=== PATIENT | female | born 1995 | race Two or more races ===

== ENCOUNTER 2020-06-09 14:50 | Inpatient (IN) | payer OTHER ==
[~2020-06-09] VITALS: Ht 157.5 cm; Wt 71.7 kg
[2020-06-09 10:15] VITALS: BP 102/66
[2020-06-09] MEDS ORDERED: ONDANSETRON HCL 4 MG TABLET PO PRN (22:15)
[2020-06-09] MEDS ORDERED: BISACODYL 10 MG RECTAL RECTAL SUPPOSITORY PR PRN (22:15)
[2020-06-09] MEDS ORDERED: QUEtiapine FUMARATE 25 MG TABLET PO SCH (23:00)
[2020-06-09] MEDS ORDERED: GABAPENTIN 400 MG CAPSULE PO SCH (23:00)
[2020-06-09] MEDS ORDERED: BACLOFEN 10 MG TABLET PO SCH (23:00)
[2020-06-09] MEDS: SENNA 187 MG TABLET PO SCH (23:00)
[2020-06-10] MEDS ORDERED: SODIUM CL IRRIG SOLN BOTTLE 250 ML IRRIG ONE (00:22)
[2020-06-10] MEDS: OxyCODONE HCL 5 MG IR TABLET PO PRN ×3 (00:39→17:53)
[2020-06-10] MEDS: BACLOFEN 10 MG TABLET PO SCH ×4 (01:31→20:34)
[2020-06-10] MEDS: QUEtiapine FUMARATE 25 MG TABLET PO SCH ×2 (01:32→20:34)
[2020-06-10] MEDS: GABAPENTIN 400 MG CAPSULE PO SCH ×4 (01:36→20:34)
[2020-06-10 02:09] VITALS: BP 99/55
[2020-06-10 07:20] LABS: BASOPHILS % (AUTO) 0.4 % (0.0-2.0); EOSINOPHILS % (AUTO) 3.6 % (1.0-6.0); HEMATOCRIT 28.5 % (36-46); HEMOGLOBIN 9.3 g/dL (12.0-16.0); LYMPHOCYTES # (AUTO) 0.5 K/uL (1.0-4.8); LYMPHOCYTES % (AUTO) 14.7 % (22.0-44.0); MEAN CORPUSCULAR HGB CONC 32.8 G/dL (31.0-37.0); MEAN CORPUSCULAR VOLUME 89 fL (80-100); MONOCYTES # (AUTO) 0.3 K/uL (0.1-1.0); MONOCYTES % (AUTO) 7.6 % (2.0-9.0); NEUTROPHILS # (AUTO) 2.7 K/uL (1.8-7.7); NEUTROPHILS % (AUTO) 73.7 % (40.0-70.0); PLATELET COUNT (AUTO) 239 K/uL (150-450); RED BLOOD CELL COUNT(AUTO) 3.22 MIL/uL (4.00-5.20); RED CELL DISTRIBUTION WIDTH 15.7 % (11.5-14.5)
[2020-06-10 07:25] LABS: INR 1.1 (0.9-1.1); PROTHROMBIN TIME 11.5 SEC (9.4-11.6)
[2020-06-10 07:29] LABS: ALANINE AMINOTRANSFERASE 17 U/L (12-78); ALBUMIN 2.9 g/dL (3.4-5.0); ALKALINE PHOSPHATASE 97 U/L (46-116); ANION GAP 8 mmol/L (8-16); ASPARTATE AMINOTRANSFERASE 42 U/L (15-37); BILIRUBIN,TOTAL 1.5 mg/dL (0.1-1.0); CALCIUM, TOTAL 8.7 mg/dL (8.8-10.5); CARBON DIOXIDE 26 mmol/L (22-29); CHLORIDE 103 mmol/L (98-107); CREATININE 0.44 mg/dL (0.60-1.30); GLOMERULAR FILTR. RATE CALC > 60 mL/min (>60); GLUCOSE,RANDOM 98 mg/dL (70-110); SODIUM SERUM 137 mmol/L (136-145); UREA NITROGEN, BLOOD 11 mg/dL (7-18)
[2020-06-10 07:45] VITALS: BP 110/57
[2020-06-10] MEDS: CALCIUM CIT/VITAMIN D3 200 MG-250 UNITS TABLET PO SCH (08:03)
[2020-06-10] MEDS: TAMSULOSIN HCL 0.4 MG CAPSULE PO SCH (08:04)
[2020-06-10] MEDS: DOCUSATE SODIUM 250 MG CAPSULE PO SCH (08:05)
[2020-06-10] MEDS: APIXABAN 5 MG TABLET PO SCH ×2 (08:06→20:34)
[2020-06-10] MEDS: ASPIRIN 81 MG CHEWABLE TABLET PO SCH (08:06)
[2020-06-10] MEDS: 0.9% SODIUM CHLORIDE 10 ML SYRINGE IVP SCH ×3 (08:06→16:07)
[2020-06-10] MEDS: LIDOCAINE 5% TRANSDERMAL PATCH TD SCH (08:07)
[2020-06-10] MEDS: POLYETHYLENE GLYCOL 3350 17 GM PACKET PO SCH (08:07)
[2020-06-10] MEDS ORDERED: MULTIVITAMINS, THERAPEUTIC TABLET PO SCH (09:00)
[2020-06-10] MEDS: ACETAMINOPHEN 325 MG TABLET PO PRN (11:08)
[2020-06-10 16:00] VITALS: BP 125/59
[2020-06-10 16:53] LABS: APPEARANCE,URINE CLOUDY (CLEAR); BILIRUBIN,URINE PRELIM. POSITIVE (NEGATIVE); GLUCOSE, URINE (UA) NEGATIVE (NEGATIVE); KETONES,URINE NEGATIVE (NEGATIVE); LEUKOCYTE ESTERASE ,URINE NEGATIVE (NEGATIVE); NITRATE,URINE NEGATIVE (NEGATIVE); OCCULT BLOOD,URINE NEGATIVE (NEGATIVE); PH,URINE 7.5 (5.0-8.0); PROTEIN,URINE TRACE (NEGATIVE); UROBILINOGEN,URINE >=8.0 mg/dL (<=1.0)
[2020-06-10 16:59] LABS: BACTERIA,URINE Few /HPF (None Seen); RBC,URINE 0-2 /HPF (0-2); WBC,URINE 0-2 /HPF (0-5)
[2020-06-10 17:00] LABS: AMORPHOUS SEDIMENT,UR Moderate /LPF (None Seen); RENAL EPITHELIAL CELLS,URINE Rare /LPF (None Seen)
[2020-06-10] MEDS: CHLORHEXIDINE GLUCONATE 4% 118 ML TOPICAL LIQUID TP SCH (17:54)
[2020-06-10] MEDS: SENNA 187 MG TABLET PO SCH (20:34)
[2020-06-10] MEDS: -LIDODERM PATCH NOTE- MISC SCH (20:36)
[2020-06-11] MEDS: 0.9% SODIUM CHLORIDE 10 ML SYRINGE IVP SCH ×4 (00:13→23:15)
[2020-06-11 01:30] VITALS: BP 105/64
[2020-06-11] MEDS: DOCUSATE SODIUM 250 MG CAPSULE PO SCH (09:00)
[2020-06-11] MEDS: POLYETHYLENE GLYCOL 3350 17 GM PACKET PO SCH (09:00)
[2020-06-11] MEDS ORDERED: SODIUM CL IRRIG SOLN BOTTLE 250 ML IRRIG ONE (11:09)
[2020-06-11 11:25] VITALS: BP 111/69
[2020-06-11] MEDS: LACTOBAC ACID/BULG/BIFID/THERM TABLET PO SCH (11:30)
[2020-06-11] MEDS ORDERED: LOPERAMIDE HCL 2 MG CAPSULE PO PRN (11:30)
[2020-06-11] MEDS: CALCIUM CIT/VITAMIN D3 200 MG-250 UNITS TABLET PO SCH (13:02)
[2020-06-11] MEDS: ASPIRIN 81 MG CHEWABLE TABLET PO SCH (13:05)
[2020-06-11] MEDS: GABAPENTIN 400 MG CAPSULE PO SCH ×3 (13:06→20:26)
[2020-06-11] MEDS: TAMSULOSIN HCL 0.4 MG CAPSULE PO SCH (13:06)
[2020-06-11] MEDS: MULTIVITAMINS WITH MINERALS, THERAPEUTIC TABLET PO SCH (13:06)
[2020-06-11] MEDS: LIDOCAINE 5% TRANSDERMAL PATCH TD SCH (13:06)
[2020-06-11] MEDS: APIXABAN 5 MG TABLET PO SCH ×2 (13:07→20:27)
[2020-06-11] MEDS: BACLOFEN 10 MG TABLET PO SCH ×3 (13:07→20:27)
[2020-06-11 16:37] VITALS: BP 117/73
[2020-06-11] MEDS: CHLORHEXIDINE GLUCONATE 4% 118 ML TOPICAL LIQUID TP SCH (18:23)
[2020-06-11] MEDS: OxyCODONE HCL 5 MG IR TABLET PO PRN ×2 (18:24→23:15)
[2020-06-11] MEDS: QUEtiapine FUMARATE 25 MG TABLET PO SCH (20:27)
[2020-06-11] MEDS: SENNA 187 MG TABLET PO SCH (20:27)
[2020-06-11] MEDS: -LIDODERM PATCH NOTE- MISC SCH (20:28)
[2020-06-11 23:15] VITALS: BP 113/59
[2020-06-12] MEDS: LACTOBAC ACID/BULG/BIFID/THERM TABLET PO SCH (07:45)
[2020-06-12] MEDS: BACLOFEN 10 MG TABLET PO SCH ×3 (07:45→20:38)
[2020-06-12] MEDS: TAMSULOSIN HCL 0.4 MG CAPSULE PO SCH (07:45)
[2020-06-12] MEDS: APIXABAN 5 MG TABLET PO SCH ×2 (07:45→20:38)
[2020-06-12] MEDS: MULTIVITAMINS WITH MINERALS, THERAPEUTIC TABLET PO SCH (07:45)
[2020-06-12] MEDS: GABAPENTIN 400 MG CAPSULE PO SCH ×3 (07:45→20:38)
[2020-06-12] MEDS: LIDOCAINE 5% TRANSDERMAL PATCH TD SCH (07:46)
[2020-06-12] MEDS: ASPIRIN 81 MG CHEWABLE TABLET PO SCH (07:46)
[2020-06-12] MEDS: CALCIUM CIT/VITAMIN D3 200 MG-250 UNITS TABLET PO SCH (07:51)
[2020-06-12] MEDS: POLYETHYLENE GLYCOL 3350 17 GM PACKET PO SCH (07:53)
[2020-06-12] MEDS: 0.9% SODIUM CHLORIDE 10 ML SYRINGE IVP SCH ×2 (07:53→15:11)
[2020-06-12] MEDS: DOCUSATE SODIUM 250 MG CAPSULE PO SCH (07:53)
[2020-06-12 08:01] VITALS: BP 105/62
[2020-06-12] MEDS: OxyCODONE HCL 5 MG IR TABLET PO PRN ×2 (10:41→20:38)
[2020-06-12 15:05] VITALS: BP 110/65
[2020-06-12] MEDS: CHLORHEXIDINE GLUCONATE 4% 118 ML TOPICAL LIQUID TP SCH (18:00)
[2020-06-12] MEDS: MIRTAZAPINE 15 MG TABLET PO SCH (20:38)
[2020-06-12] MEDS: -LIDODERM PATCH NOTE- MISC SCH (20:39)
[2020-06-12] MEDS: SENNA 187 MG TABLET PO SCH (20:41)
[2020-06-13 06:23] VITALS: BP 111/67
[2020-06-13] MEDS: OxyCODONE HCL 5 MG IR TABLET PO PRN ×2 (06:23→13:27)
[2020-06-13 07:14] VITALS: BP 103/61
[2020-06-13] MEDS: DOCUSATE SODIUM 250 MG CAPSULE PO SCH (08:25)
[2020-06-13] MEDS: LACTOBAC ACID/BULG/BIFID/THERM TABLET PO SCH (08:25)
[2020-06-13] MEDS: ASPIRIN 81 MG CHEWABLE TABLET PO SCH (08:25)
[2020-06-13] MEDS: APIXABAN 5 MG TABLET PO SCH ×2 (08:28→20:41)
[2020-06-13] MEDS: TAMSULOSIN HCL 0.4 MG CAPSULE PO SCH (08:28)
[2020-06-13] MEDS: BACLOFEN 10 MG TABLET PO SCH (08:28)
[2020-06-13] MEDS: POLYETHYLENE GLYCOL 3350 17 GM PACKET PO SCH (08:28)
[2020-06-13] MEDS: LIDOCAINE 5% TRANSDERMAL PATCH TD SCH (08:29)
[2020-06-13] MEDS: MULTIVITAMINS WITH MINERALS, THERAPEUTIC TABLET PO SCH (08:29)
[2020-06-13] MEDS: GABAPENTIN 400 MG CAPSULE PO SCH ×3 (08:29→20:41)
[2020-06-13] MEDS: CALCIUM CIT/VITAMIN D3 200 MG-250 UNITS TABLET PO SCH (08:38)
[2020-06-13 16:00] VITALS: BP 107/68
[2020-06-13] MEDS: ACETAMINOPHEN 325 MG TABLET PO PRN (16:16)
[2020-06-13] MEDS: -LIDODERM PATCH NOTE- MISC SCH (20:41)
[2020-06-13] MEDS: SENNA 187 MG TABLET PO SCH (20:41)
[2020-06-13] MEDS: MIRTAZAPINE 15 MG TABLET PO SCH (20:41)
[2020-06-14 00:41] VITALS: BP 104/63
[2020-06-14] MEDS: OxyCODONE HCL 5 MG IR TABLET PO PRN ×2 (00:41→19:59)
[2020-06-14 06:05] LABS: BASOPHILS % (AUTO) 0.8 % (0.0-2.0); EOSINOPHILS % (AUTO) 3.9 % (1.0-6.0); HEMATOCRIT 30.6 % (36-46); LYMPHOCYTES # (AUTO) 0.7 K/uL (1.0-4.8); LYMPHOCYTES % (AUTO) 24.4 % (22.0-44.0); MEAN CORPUSCULAR HEMOGLOBIN 28.9 pg (26.0-34.0); MEAN CORPUSCULAR HGB CONC 32.7 G/dL (31.0-37.0); MEAN CORPUSCULAR VOLUME 89 fL (80-100); MONOCYTES # (AUTO) 0.3 K/uL (0.1-1.0); NEUTROPHILS # (AUTO) 1.9 K/uL (1.8-7.7); NEUTROPHILS % (AUTO) 60.9 % (40.0-70.0); PLATELET COUNT (AUTO) 283 K/uL (150-450); RED BLOOD CELL COUNT(AUTO) 3.45 MIL/uL (4.00-5.20); RED CELL DISTRIBUTION WIDTH 15.8 % (11.5-14.5)
[2020-06-14 07:12] LABS: ALANINE AMINOTRANSFERASE 28 U/L (12-78); ALBUMIN 3.1 g/dL (3.4-5.0); ALKALINE PHOSPHATASE 117 U/L (46-116); ANION GAP 11 mmol/L (8-16); ASPARTATE AMINOTRANSFERASE 46 U/L (15-37); BILIRUBIN,TOTAL 1.4 mg/dL (0.1-1.0); CALCIUM, TOTAL 9.4 mg/dL (8.8-10.5); CARBON DIOXIDE 25 mmol/L (22-29); CHLORIDE 101 mmol/L (98-107); CREATININE 0.55 mg/dL (0.60-1.30); GLOMERULAR FILTR. RATE CALC > 60 mL/min (>60); GLUCOSE,RANDOM 100 mg/dL (70-110); POTASSIUM 3.6 mmol/L (3.5-5.1); SODIUM SERUM 137 mmol/L (136-145); TOTAL PROTEIN, SERUM 7.1 g/dL (6.4-8.2); UREA NITROGEN, BLOOD 11 mg/dL (7-18)
[2020-06-14 07:22] VITALS: BP 100/61
[2020-06-14] MEDS: ACETAMINOPHEN 325 MG TABLET PO PRN ×2 (07:35→13:38)
[2020-06-14] MEDS: APIXABAN 5 MG TABLET PO SCH ×2 (08:14→20:40)
[2020-06-14] MEDS: DOCUSATE SODIUM 250 MG CAPSULE PO SCH (08:14)
[2020-06-14] MEDS: TAMSULOSIN HCL 0.4 MG CAPSULE PO SCH (08:14)
[2020-06-14] MEDS: LACTOBAC ACID/BULG/BIFID/THERM TABLET PO SCH (08:14)
[2020-06-14] MEDS: ASPIRIN 81 MG CHEWABLE TABLET PO SCH (08:14)
[2020-06-14] MEDS: POLYETHYLENE GLYCOL 3350 17 GM PACKET PO SCH (08:15)
[2020-06-14] MEDS: LIDOCAINE 5% TRANSDERMAL PATCH TD SCH (08:15)
[2020-06-14] MEDS: GABAPENTIN 400 MG CAPSULE PO SCH ×3 (08:15→20:40)
[2020-06-14] MEDS: MULTIVITAMINS WITH MINERALS, THERAPEUTIC TABLET PO SCH (08:15)
[2020-06-14] MEDS: CALCIUM CIT/VITAMIN D3 200 MG-250 UNITS TABLET PO SCH (08:21)
[2020-06-14 16:19] VITALS: BP 107/60
[2020-06-14] MEDS: MIRTAZAPINE 15 MG TABLET PO SCH (20:39)
[2020-06-14] MEDS: SENNA 187 MG TABLET PO SCH (20:40)
[2020-06-14] MEDS: -LIDODERM PATCH NOTE- MISC SCH (20:45)
[2020-06-15] VITALS: BP 103/65
[2020-06-15] MEDS: OxyCODONE HCL 5 MG IR TABLET PO PRN ×3 (07:16→19:29)
[2020-06-15 07:17] VITALS: BP 113/65
[2020-06-15] MEDS: LACTOBAC ACID/BULG/BIFID/THERM TABLET PO SCH (08:36)
[2020-06-15] MEDS: ASPIRIN 81 MG CHEWABLE TABLET PO SCH (08:36)
[2020-06-15] MEDS: TAMSULOSIN HCL 0.4 MG CAPSULE PO SCH (08:37)
[2020-06-15] MEDS: DOCUSATE SODIUM 250 MG CAPSULE PO SCH (08:37)
[2020-06-15] MEDS: APIXABAN 5 MG TABLET PO SCH ×2 (08:37→20:45)
[2020-06-15] MEDS: POLYETHYLENE GLYCOL 3350 17 GM PACKET PO SCH (08:38)
[2020-06-15] MEDS: LIDOCAINE 5% TRANSDERMAL PATCH TD SCH (08:38)
[2020-06-15] MEDS: MULTIVITAMINS WITH MINERALS, THERAPEUTIC TABLET PO SCH (08:38)
[2020-06-15] MEDS: GABAPENTIN 400 MG CAPSULE PO SCH ×3 (08:38→20:45)
[2020-06-15] MEDS: CALCIUM CIT/VITAMIN D3 200 MG-250 UNITS TABLET PO SCH (08:42)
[2020-06-15 16:37] VITALS: BP 114/66
[2020-06-15] MEDS: MIRTAZAPINE 15 MG TABLET PO SCH (20:44)
[2020-06-15] MEDS: SENNA 187 MG TABLET PO SCH (20:44)
[2020-06-15] MEDS: -LIDODERM PATCH NOTE- MISC SCH (20:45)
[2020-06-15] MEDS ORDERED: ASPI-728 PO (21:50)
[2020-06-15] MEDS ORDERED: ACID1TAB13 PO (21:52)
[2020-06-15] MEDS ORDERED: DOCU-350 PO (21:54)
[2020-06-15] MEDS ORDERED: APIX5TAB PO (21:54)
[2020-06-15] MEDS ORDERED: CALC-840 PO (21:54)
[2020-06-15] MEDS ORDERED: POLY17PO47 PO (21:57)
[2020-06-15] MEDS ORDERED: TAMS-13 PO (21:57)
[2020-06-15] MEDS ORDERED: GABA-1201 PO (21:57)
[2020-06-15] MEDS ORDERED: MULT-1239 PO (22:01)
[2020-06-15] MEDS ORDERED: LIDO700A15 TP (22:01)
[2020-06-15] MEDS ORDERED: MIRT-89 PO (22:01)
[2020-06-15] MEDS ORDERED: SENN8.6T90 PO (22:04)
[2020-06-16] VITALS: BP 108/58
[2020-06-16 07:42] VITALS: BP 112/64
[2020-06-16] MEDS: LIDOCAINE 5% TRANSDERMAL PATCH TD SCH (08:02)
[2020-06-16] MEDS: TAMSULOSIN HCL 0.4 MG CAPSULE PO SCH (08:02)
[2020-06-16] MEDS: GABAPENTIN 400 MG CAPSULE PO SCH ×3 (08:02→20:32)
[2020-06-16] MEDS: DOCUSATE SODIUM 250 MG CAPSULE PO SCH (08:02)
[2020-06-16] MEDS: CALCIUM CIT/VITAMIN D3 200 MG-250 UNITS TABLET PO SCH (08:02)
[2020-06-16] MEDS: ASPIRIN 81 MG CHEWABLE TABLET PO SCH (08:02)
[2020-06-16] MEDS: MULTIVITAMINS WITH MINERALS, THERAPEUTIC TABLET PO SCH (08:02)
[2020-06-16] MEDS: APIXABAN 5 MG TABLET PO SCH ×2 (08:03→20:32)
[2020-06-16] MEDS: POLYETHYLENE GLYCOL 3350 17 GM PACKET PO SCH (08:03)
[2020-06-16] MEDS: LACTOBAC ACID/BULG/BIFID/THERM TABLET PO SCH (08:03)
[2020-06-16] MEDS: OxyCODONE HCL 5 MG IR TABLET PO PRN (08:28)
[2020-06-16] MEDS ORDERED: APIXABAN 5 MG TABLET PO SCH (09:00)
[2020-06-16 16:26] VITALS: BP 121/63
[2020-06-16] MEDS: SENNA 187 MG TABLET PO SCH (20:32)
[2020-06-16] MEDS: MIRTAZAPINE 15 MG TABLET PO SCH (20:32)
[2020-06-16] MEDS: -LIDODERM PATCH NOTE- MISC SCH (20:33)
[2020-06-16] MEDS: ACETAMINOPHEN 325 MG TABLET PO PRN (21:43)
[2020-06-17 00:16] VITALS: BP 101/59
[2020-06-17 07:56] VITALS: BP 105/65
[2020-06-17 08:20] VITALS: BP 105/65
[2020-06-17] MEDS: OxyCODONE HCL 5 MG IR TABLET PO PRN ×2 (08:20→13:32)
[2020-06-17 08:41] LABS: BASOPHILS % (AUTO) 0.6 % (0.0-2.0); HEMATOCRIT 32.8 % (36-46); HEMOGLOBIN 10.7 g/dL (12.0-16.0); LYMPHOCYTES # (AUTO) 0.6 K/uL (1.0-4.8); LYMPHOCYTES % (AUTO) 20.3 % (22.0-44.0); MEAN CORPUSCULAR HGB CONC 32.6 G/dL (31.0-37.0); MEAN CORPUSCULAR VOLUME 89 fL (80-100); MONOCYTES # (AUTO) 0.3 K/uL (0.1-1.0); MONOCYTES % (AUTO) 10.4 % (2.0-9.0); NEUTROPHILS # (AUTO) 1.9 K/uL (1.8-7.7); NEUTROPHILS % (AUTO) 63.7 % (40.0-70.0); PLATELET COUNT (AUTO) 278 K/uL (150-450); RED BLOOD CELL COUNT(AUTO) 3.69 MIL/uL (4.00-5.20); RED CELL DISTRIBUTION WIDTH 16.4 % (11.5-14.5)
[2020-06-17] MEDS: ASPIRIN 81 MG CHEWABLE TABLET PO SCH (08:51)
[2020-06-17] MEDS: LACTOBAC ACID/BULG/BIFID/THERM TABLET PO SCH (08:51)
[2020-06-17] MEDS: DOCUSATE SODIUM 250 MG CAPSULE PO SCH (08:51)
[2020-06-17] MEDS: TAMSULOSIN HCL 0.4 MG CAPSULE PO SCH (08:52)
[2020-06-17] MEDS: GABAPENTIN 400 MG CAPSULE PO SCH ×4 (08:52→21:20)
[2020-06-17] MEDS: APIXABAN 5 MG TABLET PO SCH ×2 (08:52→20:39)
[2020-06-17] MEDS: POLYETHYLENE GLYCOL 3350 17 GM PACKET PO SCH (08:52)
[2020-06-17] MEDS: LIDOCAINE 5% TRANSDERMAL PATCH TD SCH (08:53)
[2020-06-17] MEDS: MULTIVITAMINS WITH MINERALS, THERAPEUTIC TABLET PO SCH (08:53)
[2020-06-17 08:56] LABS: ALANINE AMINOTRANSFERASE 33 U/L (12-78); ALBUMIN 3.1 g/dL (3.4-5.0); ALKALINE PHOSPHATASE 126 U/L (46-116); ANION GAP 8 mmol/L (8-16); ASPARTATE AMINOTRANSFERASE 40 U/L (15-37); BILIRUBIN,TOTAL 1.3 mg/dL (0.1-1.0); CALCIUM, TOTAL 9.3 mg/dL (8.8-10.5); CARBON DIOXIDE 27 mmol/L (22-29); CHLORIDE 103 mmol/L (98-107); CREATININE 0.44 mg/dL (0.60-1.30); GLOMERULAR FILTR. RATE CALC > 60 mL/min (>60); GLUCOSE,RANDOM 101 mg/dL (70-110); POTASSIUM 3.9 mmol/L (3.5-5.1); SODIUM SERUM 138 mmol/L (136-145); TOTAL PROTEIN, SERUM 7.3 g/dL (6.4-8.2); UREA NITROGEN, BLOOD 8 mg/dL (7-18)
[2020-06-17] MEDS: CALCIUM CIT/VITAMIN D3 200 MG-250 UNITS TABLET PO SCH (08:59)
[2020-06-17 16:00] VITALS: BP 102/61
[2020-06-17] MEDS: -LIDODERM PATCH NOTE- MISC SCH (20:37)
[2020-06-17] MEDS: SENNA 187 MG TABLET PO SCH (21:23)
[2020-06-17] MEDS: MIRTAZAPINE 15 MG TABLET PO SCH (21:25)
[2020-06-18 00:55] VITALS: BP 110/63
[2020-06-18] MEDS: OxyCODONE HCL 5 MG IR TABLET PO PRN ×3 (00:55→19:56)
[2020-06-18 09:10] VITALS: BP 100/58
[2020-06-18] MEDS: ASPIRIN 81 MG CHEWABLE TABLET PO SCH (09:30)
[2020-06-18] MEDS: LACTOBAC ACID/BULG/BIFID/THERM TABLET PO SCH (09:30)
[2020-06-18] MEDS: CALCIUM CIT/VITAMIN D3 200 MG-250 UNITS TABLET PO SCH (09:30)
[2020-06-18] MEDS: POLYETHYLENE GLYCOL 3350 17 GM PACKET PO SCH (09:31)
[2020-06-18] MEDS: GABAPENTIN 400 MG CAPSULE PO SCH ×3 (09:31→21:26)
[2020-06-18] MEDS: MULTIVITAMINS WITH MINERALS, THERAPEUTIC TABLET PO SCH (09:31)
[2020-06-18] MEDS: DOCUSATE SODIUM 250 MG CAPSULE PO SCH (09:31)
[2020-06-18] MEDS: LIDOCAINE 5% TRANSDERMAL PATCH TD SCH (09:31)
[2020-06-18] MEDS: APIXABAN 5 MG TABLET PO SCH ×2 (09:31→21:26)
[2020-06-18] MEDS: TAMSULOSIN HCL 0.4 MG CAPSULE PO SCH (09:31)
[2020-06-18 16:09] VITALS: BP 103/63
[2020-06-18] MEDS: SENNA 187 MG TABLET PO SCH (21:00)
[2020-06-18] MEDS: ACETAMINOPHEN 325 MG TABLET PO PRN (21:27)
[2020-06-18] MEDS: MIRTAZAPINE 15 MG TABLET PO SCH (21:27)
[2020-06-18] MEDS: -LIDODERM PATCH NOTE- MISC SCH (21:37)
[2020-06-18 22:07] LABS: OVA AND PARASITES EXAM Final report
[2020-06-18 23:03] VITALS: BP 104/68
[2020-06-19] VITALS: BP 104/68
[2020-06-19] MEDS: MULTIVITAMINS WITH MINERALS, THERAPEUTIC TABLET PO SCH (08:32)
[2020-06-19] MEDS: TAMSULOSIN HCL 0.4 MG CAPSULE PO SCH (08:32)
[2020-06-19] MEDS: LACTOBAC ACID/BULG/BIFID/THERM TABLET PO SCH (08:32)
[2020-06-19] MEDS: GABAPENTIN 400 MG CAPSULE PO SCH ×3 (08:32→20:29)
[2020-06-19] MEDS: ASPIRIN 81 MG CHEWABLE TABLET PO SCH (08:33)
[2020-06-19] MEDS: APIXABAN 5 MG TABLET PO SCH ×2 (08:33→20:30)
[2020-06-19] MEDS: CALCIUM CIT/VITAMIN D3 200 MG-250 UNITS TABLET PO SCH (08:34)
[2020-06-19] MEDS: POLYETHYLENE GLYCOL 3350 17 GM PACKET PO SCH (08:34)
[2020-06-19] MEDS: DOCUSATE SODIUM 250 MG CAPSULE PO SCH (08:34)
[2020-06-19] MEDS: LIDOCAINE 5% TRANSDERMAL PATCH TD SCH (08:34)
[2020-06-19] MEDS: OxyCODONE HCL 5 MG IR TABLET PO PRN ×3 (09:18→23:24)
[2020-06-19 09:49] VITALS: BP 99/68
[2020-06-19 16:02] VITALS: BP 116/69
[2020-06-19] MEDS: MIRTAZAPINE 30 MG TABLET PO SCH (20:29)
[2020-06-19] MEDS: -LIDODERM PATCH NOTE- MISC SCH (20:30)
[2020-06-19] MEDS: SENNA 187 MG TABLET PO SCH (20:30)
[2020-06-20 00:24] VITALS: BP 101/65
[2020-06-20] MEDS: OxyCODONE HCL 5 MG IR TABLET PO PRN ×4 (03:20→18:49)
[2020-06-20] MEDS: LIDOCAINE 5% TRANSDERMAL PATCH TD SCH (08:59)
[2020-06-20 09:00] VITALS: BP 101/68
[2020-06-20] MEDS: LACTOBAC ACID/BULG/BIFID/THERM TABLET PO SCH (09:00)
[2020-06-20] MEDS: ASPIRIN 81 MG CHEWABLE TABLET PO SCH (09:00)
[2020-06-20] MEDS: GABAPENTIN 400 MG CAPSULE PO SCH ×3 (09:00→20:41)
[2020-06-20] MEDS: TAMSULOSIN HCL 0.4 MG CAPSULE PO SCH (09:00)
[2020-06-20] MEDS: MULTIVITAMINS WITH MINERALS, THERAPEUTIC TABLET PO SCH (09:00)
[2020-06-20] MEDS: APIXABAN 5 MG TABLET PO SCH ×2 (09:00→20:42)
[2020-06-20] MEDS: POLYETHYLENE GLYCOL 3350 17 GM PACKET PO SCH (09:00)
[2020-06-20] MEDS: DOCUSATE SODIUM 250 MG CAPSULE PO SCH (09:00)
[2020-06-20] MEDS: CALCIUM CIT/VITAMIN D3 200 MG-250 UNITS TABLET PO SCH (09:00)
[2020-06-20 13:49] LABS: APPEARANCE,URINE TURBID (CLEAR); BILIRUBIN,URINE NEGATIVE (NEGATIVE); GLUCOSE, URINE (UA) NEGATIVE (NEGATIVE); KETONES,URINE NEGATIVE (NEGATIVE); LEUKOCYTE ESTERASE ,URINE SMALL (NEGATIVE); NITRATE,URINE NEGATIVE (NEGATIVE); OCCULT BLOOD,URINE NEGATIVE (NEGATIVE); PH,URINE 7.5 (5.0-8.0); PROTEIN,URINE POS 1+ (NEGATIVE)
[2020-06-20 14:02] LABS: BACTERIA,URINE None Seen /HPF (None Seen); CALCIUM OXALATE CRYSTALS,UR Few /LPF (None Seen); RBC,URINE None Seen /HPF (0-2); SQUAMOUS EPITHELIAL CELL,UR Many /LPF (None Seen); WBC,URINE 0-2 /HPF (0-5)
[2020-06-20 14:03] LABS: AMORPHOUS SEDIMENT,UR Many /LPF (None Seen)
[2020-06-20 16:17] VITALS: BP 109/68
[2020-06-20] MEDS: MIRTAZAPINE 30 MG TABLET PO SCH (20:41)
[2020-06-20] MEDS: SENNA 187 MG TABLET PO SCH (20:41)
[2020-06-20] MEDS: -LIDODERM PATCH NOTE- MISC SCH (20:46)
[2020-06-21] VITALS: BP 100/59
[2020-06-21 07:05] LABS: BASOPHILS % (AUTO) 0.6 % (0.0-2.0); EOSINOPHILS % (AUTO) 6.3 % (1.0-6.0); HEMATOCRIT 27.8 % (36-46); HEMOGLOBIN 10.3 g/dL (12.0-16.0); LYMPHOCYTES # (AUTO) 0.5 K/uL (1.0-4.8); LYMPHOCYTES % (AUTO) 24.6 % (22.0-44.0); MEAN CORPUSCULAR HEMOGLOBIN 36.9 pg (26.0-34.0); MEAN CORPUSCULAR VOLUME 99 fL (80-100); MONOCYTES # (AUTO) 0.2 K/uL (0.1-1.0); MONOCYTES % (AUTO) 7.5 % (2.0-9.0); NEUTROPHILS # (AUTO) 1.3 K/uL (1.8-7.7); PLATELET COUNT (AUTO) 203 K/uL (150-450); RED CELL DISTRIBUTION WIDTH 15.7 % (11.5-14.5)
[2020-06-21 07:18] LABS: MEAN CORPUSCULAR HGB CONC 36.1 G/dL (31.0-37.0)
[2020-06-21 07:38] LABS: ALANINE AMINOTRANSFERASE 30 U/L (12-78); ALBUMIN 3.1 g/dL (3.4-5.0); ALKALINE PHOSPHATASE 122 U/L (46-116); ANION GAP 7 mmol/L (8-16); ASPARTATE AMINOTRANSFERASE 32 U/L (15-37); BILIRUBIN,TOTAL 1.2 mg/dL (0.1-1.0); CALCIUM, TOTAL 9.2 mg/dL (8.8-10.5); CARBON DIOXIDE 28 mmol/L (22-29); CHLORIDE 103 mmol/L (98-107); CREATININE 0.36 mg/dL (0.60-1.30); GLOMERULAR FILTR. RATE CALC > 60 mL/min (>60); GLUCOSE,RANDOM 109 mg/dL (70-110); POTASSIUM 3.8 mmol/L (3.5-5.1); SODIUM SERUM 138 mmol/L (136-145); UREA NITROGEN, BLOOD 9 mg/dL (7-18)
[2020-06-21 08:05] VITALS: BP 95/57
[2020-06-21] MEDS: ASPIRIN 81 MG CHEWABLE TABLET PO SCH (08:23)
[2020-06-21] MEDS: DOCUSATE SODIUM 250 MG CAPSULE PO SCH (08:23)
[2020-06-21] MEDS: LACTOBAC ACID/BULG/BIFID/THERM TABLET PO SCH (08:23)
[2020-06-21] MEDS: MULTIVITAMINS WITH MINERALS, THERAPEUTIC TABLET PO SCH (08:23)
[2020-06-21] MEDS: CALCIUM CIT/VITAMIN D3 200 MG-250 UNITS TABLET PO SCH (08:23)
[2020-06-21] MEDS: POLYETHYLENE GLYCOL 3350 17 GM PACKET PO SCH (08:23)
[2020-06-21] MEDS: TAMSULOSIN HCL 0.4 MG CAPSULE PO SCH (08:23)
[2020-06-21] MEDS: APIXABAN 5 MG TABLET PO SCH ×2 (08:24→20:29)
[2020-06-21] MEDS: GABAPENTIN 400 MG CAPSULE PO SCH ×3 (08:24→20:29)
[2020-06-21] MEDS: LIDOCAINE 5% TRANSDERMAL PATCH TD SCH (08:25)
[2020-06-21] MEDS: OxyCODONE HCL 5 MG IR TABLET PO PRN (11:45)
[2020-06-21] MEDS: ACETAMINOPHEN 325 MG TABLET PO PRN (15:45)
[2020-06-21 16:05] VITALS: BP 116/70
[2020-06-21] MEDS: -LIDODERM PATCH NOTE- MISC SCH (20:29)
[2020-06-21] MEDS: MIRTAZAPINE 30 MG TABLET PO SCH (20:29)
[2020-06-21] MEDS: SENNA 187 MG TABLET PO SCH (20:29)
[2020-06-22] VITALS: BP 101/59
[2020-06-22 08:01] VITALS: BP 97/66
[2020-06-22] MEDS: POLYETHYLENE GLYCOL 3350 17 GM PACKET PO SCH (08:55)
[2020-06-22] MEDS: GABAPENTIN 400 MG CAPSULE PO SCH ×3 (08:57→20:22)
[2020-06-22] MEDS: LACTOBAC ACID/BULG/BIFID/THERM TABLET PO SCH (08:57)
[2020-06-22] MEDS: APIXABAN 5 MG TABLET PO SCH ×2 (08:57→20:22)
[2020-06-22] MEDS: DOCUSATE SODIUM 250 MG CAPSULE PO SCH (08:57)
[2020-06-22] MEDS: LIDOCAINE 5% TRANSDERMAL PATCH TD SCH (08:57)
[2020-06-22] MEDS: CALCIUM CIT/VITAMIN D3 200 MG-250 UNITS TABLET PO SCH (08:57)
[2020-06-22] MEDS: MULTIVITAMINS WITH MINERALS, THERAPEUTIC TABLET PO SCH (08:57)
[2020-06-22] MEDS: TAMSULOSIN HCL 0.4 MG CAPSULE PO SCH (08:57)
[2020-06-22] MEDS: ASPIRIN 81 MG CHEWABLE TABLET PO SCH (08:58)
[2020-06-22] MEDS: ACETAMINOPHEN 325 MG TABLET PO PRN ×3 (09:05→20:28)
[2020-06-22 17:31] VITALS: BP 132/74
[2020-06-22] MEDS: MIRTAZAPINE 30 MG TABLET PO SCH (20:22)
[2020-06-22] MEDS: SENNA 187 MG TABLET PO SCH (20:22)
[2020-06-22] MEDS: -LIDODERM PATCH NOTE- MISC SCH (20:23)
[2020-06-23] VITALS: BP 101/53
[2020-06-23] MEDS: CALCIUM CIT/VITAMIN D3 200 MG-250 UNITS TABLET PO SCH (07:58)
[2020-06-23] MEDS: MULTIVITAMINS WITH MINERALS, THERAPEUTIC TABLET PO SCH (07:59)
[2020-06-23] MEDS: POLYETHYLENE GLYCOL 3350 17 GM PACKET PO SCH (07:59)
[2020-06-23] MEDS: TAMSULOSIN HCL 0.4 MG CAPSULE PO SCH (07:59)
[2020-06-23] MEDS: LACTOBAC ACID/BULG/BIFID/THERM TABLET PO SCH (08:00)
[2020-06-23] MEDS: ASPIRIN 81 MG CHEWABLE TABLET PO SCH (08:00)
[2020-06-23] MEDS: APIXABAN 5 MG TABLET PO SCH ×2 (08:00→20:16)
[2020-06-23] MEDS: GABAPENTIN 400 MG CAPSULE PO SCH ×3 (08:00→20:16)
[2020-06-23] MEDS: LIDOCAINE 5% TRANSDERMAL PATCH TD SCH (08:01)
[2020-06-23] MEDS: DOCUSATE SODIUM 250 MG CAPSULE PO SCH (08:01)
[2020-06-23 08:05] VITALS: BP 100/66
[2020-06-23 08:25] LABS: BASOPHILS % (AUTO) 0.7 % (0.0-2.0); EOSINOPHILS % (AUTO) 7.5 % (1.0-6.0); HEMOGLOBIN 10.7 g/dL (12.0-16.0); LYMPHOCYTES # (AUTO) 0.6 K/uL (1.0-4.8); LYMPHOCYTES % (AUTO) 26.1 % (22.0-44.0); MEAN CORPUSCULAR HEMOGLOBIN 30.4 pg (26.0-34.0); MEAN CORPUSCULAR HGB CONC 33.3 G/dL (31.0-37.0); MEAN CORPUSCULAR VOLUME 91 fL (80-100); MONOCYTES # (AUTO) 0.2 K/uL (0.1-1.0); NEUTROPHILS # (AUTO) 1.3 K/uL (1.8-7.7); NEUTROPHILS % (AUTO) 57.7 % (40.0-70.0); PLATELET COUNT (AUTO) 197 K/uL (150-450); RED CELL DISTRIBUTION WIDTH 16.4 % (11.5-14.5)
[2020-06-23 15:05] VITALS: BP 108/61
[2020-06-23] MEDS: -LIDODERM PATCH NOTE- MISC SCH (20:16)
[2020-06-23] MEDS: SENNA 187 MG TABLET PO SCH (20:16)
[2020-06-23] MEDS: MIRTAZAPINE 30 MG TABLET PO SCH (20:16)
[2020-06-23 23:30] VITALS: BP 102/67
[2020-06-24 07:59] VITALS: BP 86/53
[2020-06-24] MEDS: POLYETHYLENE GLYCOL 3350 17 GM PACKET PO SCH (09:00)
[2020-06-24] MEDS ORDERED: APIXABAN 5 MG TABLET PO SCH (09:00)
[2020-06-24] MEDS: APIXABAN 5 MG TABLET PO SCH ×2 (09:42→20:12)
[2020-06-24] MEDS: LACTOBAC ACID/BULG/BIFID/THERM TABLET PO SCH (09:42)
[2020-06-24] MEDS: MULTIVITAMINS WITH MINERALS, THERAPEUTIC TABLET PO SCH (09:42)
[2020-06-24] MEDS: CALCIUM CIT/VITAMIN D3 200 MG-250 UNITS TABLET PO SCH (09:42)
[2020-06-24] MEDS: TAMSULOSIN HCL 0.4 MG CAPSULE PO SCH (09:42)
[2020-06-24] MEDS: ASPIRIN 81 MG CHEWABLE TABLET PO SCH (09:42)
[2020-06-24] MEDS: DOCUSATE SODIUM 250 MG CAPSULE PO SCH (09:43)
[2020-06-24] MEDS: GABAPENTIN 400 MG CAPSULE PO SCH ×3 (09:43→20:12)
[2020-06-24] MEDS: LIDOCAINE 5% TRANSDERMAL PATCH TD SCH (09:43)
[2020-06-24 10:20] VITALS: BP 101/67
[2020-06-24] MEDS: OxyCODONE HCL 5 MG IR TABLET PO PRN ×3 (10:59→20:11)
[2020-06-24 16:04] VITALS: BP 112/80
[2020-06-24] MEDS: SENNA 187 MG TABLET PO SCH (20:12)
[2020-06-24] MEDS: MIRTAZAPINE 30 MG TABLET PO SCH (20:12)
[2020-06-24] MEDS: -LIDODERM PATCH NOTE- MISC SCH (20:33)
[2020-06-25] VITALS: BP 93/56
[2020-06-25 06:18] VITALS: BP 93/55
[2020-06-25 08:01] VITALS: BP 102/63
[2020-06-25] MEDS: TAMSULOSIN HCL 0.4 MG CAPSULE PO SCH (08:44)
[2020-06-25] MEDS: LACTOBAC ACID/BULG/BIFID/THERM TABLET PO SCH (08:44)
[2020-06-25] MEDS: DOCUSATE SODIUM 250 MG CAPSULE PO SCH (08:44)
[2020-06-25] MEDS: MULTIVITAMINS WITH MINERALS, THERAPEUTIC TABLET PO SCH (08:44)
[2020-06-25] MEDS: GABAPENTIN 400 MG CAPSULE PO SCH ×3 (08:44→20:10)
[2020-06-25] MEDS: ASPIRIN 81 MG CHEWABLE TABLET PO SCH (08:44)
[2020-06-25] MEDS: LIDOCAINE 5% TRANSDERMAL PATCH TD SCH (08:45)
[2020-06-25] MEDS: CALCIUM CIT/VITAMIN D3 200 MG-250 UNITS TABLET PO SCH (08:45)
[2020-06-25] MEDS: APIXABAN 5 MG TABLET PO SCH ×2 (08:45→20:11)
[2020-06-25] MEDS: POLYETHYLENE GLYCOL 3350 17 GM PACKET PO SCH (08:46)
[2020-06-25 16:24] VITALS: BP 98/60
[2020-06-25 19:17] VITALS: BP 99/70
[2020-06-25] MEDS: SENNA 187 MG TABLET PO SCH (20:11)
[2020-06-25] MEDS: MIRTAZAPINE 30 MG TABLET PO SCH (20:11)
[2020-06-25] MEDS: -LIDODERM PATCH NOTE- MISC SCH (20:11)
[2020-06-26] VITALS: BP 109/60
[2020-06-26] MEDS: LIDOCAINE 5% TRANSDERMAL PATCH TD SCH (07:46)
[2020-06-26] MEDS: GABAPENTIN 400 MG CAPSULE PO SCH ×3 (07:46→20:36)
[2020-06-26] MEDS: POLYETHYLENE GLYCOL 3350 17 GM PACKET PO SCH (07:46)
[2020-06-26] MEDS: APIXABAN 5 MG TABLET PO SCH ×2 (07:46→20:36)
[2020-06-26] MEDS: TAMSULOSIN HCL 0.4 MG CAPSULE PO SCH (07:46)
[2020-06-26] MEDS: MULTIVITAMINS WITH MINERALS, THERAPEUTIC TABLET PO SCH (07:46)
[2020-06-26] MEDS: LACTOBAC ACID/BULG/BIFID/THERM TABLET PO SCH (07:46)
[2020-06-26] MEDS: CALCIUM CIT/VITAMIN D3 200 MG-250 UNITS TABLET PO SCH (07:46)
[2020-06-26] MEDS: ASPIRIN 81 MG CHEWABLE TABLET PO SCH (07:47)
[2020-06-26] MEDS: DOCUSATE SODIUM 250 MG CAPSULE PO SCH (07:47)
[2020-06-26 08:10] VITALS: BP 103/59
[2020-06-26 15:41] VITALS: BP 113/63
[2020-06-26] MEDS: -LIDODERM PATCH NOTE- MISC SCH (20:35)
[2020-06-26] MEDS: SENNA 187 MG TABLET PO SCH (20:36)
[2020-06-26] MEDS: MIRTAZAPINE 30 MG TABLET PO SCH (20:36)
[2020-06-26] MEDS: OxyCODONE HCL 5 MG IR TABLET PO PRN (21:22)
[2020-06-27 02:57] VITALS: BP 102/65
[2020-06-27 07:29] LABS: ANION GAP 8 mmol/L (8-16); CALCIUM, TOTAL 9.3 mg/dL (8.8-10.5); CARBON DIOXIDE 28 mmol/L (22-29); CHLORIDE 107 mmol/L (98-107); CREATININE 0.54 mg/dL (0.60-1.30); GLOMERULAR FILTR. RATE CALC > 60 mL/min (>60); GLUCOSE,RANDOM 99 mg/dL (70-110); POTASSIUM 3.8 mmol/L (3.5-5.1); SODIUM SERUM 143 mmol/L (136-145); UREA NITROGEN, BLOOD 6 mg/dL (7-18)
[2020-06-27 08:01] VITALS: BP 110/75
[2020-06-27] MEDS: POLYETHYLENE GLYCOL 3350 17 GM PACKET PO SCH (09:00)
[2020-06-27] MEDS: MULTIVITAMINS WITH MINERALS, THERAPEUTIC TABLET PO SCH (09:16)
[2020-06-27] MEDS: TAMSULOSIN HCL 0.4 MG CAPSULE PO SCH (09:16)
[2020-06-27] MEDS: CALCIUM CIT/VITAMIN D3 200 MG-250 UNITS TABLET PO SCH (09:16)
[2020-06-27] MEDS: GABAPENTIN 400 MG CAPSULE PO SCH (09:16)
[2020-06-27] MEDS: LACTOBAC ACID/BULG/BIFID/THERM TABLET PO SCH (09:17)
[2020-06-27] MEDS: APIXABAN 5 MG TABLET PO SCH (09:17)
[2020-06-27] MEDS: ASPIRIN 81 MG CHEWABLE TABLET PO SCH (09:17)
[2020-06-27] MEDS: DOCUSATE SODIUM 250 MG CAPSULE PO SCH (09:17)
[2020-06-27] MEDS: LIDOCAINE 5% TRANSDERMAL PATCH TD SCH (09:18)
[2020-06-27] MEDS: OxyCODONE HCL 5 MG IR TABLET PO PRN (10:19)
== END 2020-06-27 13:30 | DRG 535 ==
LOC: 2WR 21:15
PROVIDERS: ADMIT Physical Medicine & Rehabilitation; ATTEND Physical Medicine & Rehabilitation
DX: S32.451A Displaced transverse fracture of right acetabulum, initial encounter for closed fracture (principal); U07.1 COVID-19; F32.2 Major depressive disorder, single episode, severe without psychotic features; J81.1 Chronic pulmonary edema; K59.00 Constipation, unspecified; Z86.718 Personal history of other venous thrombosis and embolism; Z79.01 Long term (current) use of anticoagulants; Z86.711 Personal history of pulmonary embolism; R33.9 Retention of urine, unspecified; R74.01 Elevation of levels of liver transaminase levels; D70.9 Neutropenia, unspecified; W18.39XA Other fall on same level, initial encounter
CPT/HCPCS: 80074; 87081; 87177; 97110; 97163; 97166; 97530; 97535; 99366; 99368; A9575; Q0162